=== PATIENT | female | born 1995 | race Caucasian/White ===

== ENCOUNTER 2017-01-05 16:38 | Emergency (ER) | payer BC ==
[2017-01-05 17:10] VITALS: BP 131/100
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
--- NOTE | 2017-01-07 08:19 | CR ---
DATE OF SERVICE: 01/05/17 CLINICAL DATA: injury to right hand RIGHT HAND: No acute fracture or dislocation. No lytic or blastic bone lesions. [id number] [facility]
== END 2017-01-05 17:45 | disposition home or self-care (01) ==
LOC: LB.ED 16:38
DX: S20.411A Abrasion of right back wall of thorax, initial encounter (principal); M79.641 Pain in right hand; T74.11XA Adult physical abuse, confirmed, initial encounter; Y07.01 Husband, perpetrator of maltreatment and neglect; Y04.0XXA Assault by unarmed brawl or fight, initial encounter; Z98.890 Other specified postprocedural states; Z79.899 Other long term (current) drug therapy; Z88.5 Allergy status to narcotic agent; Z88.6 Allergy status to analgesic agent
CPT/HCPCS: 29125; 73130-RT; 81025; 99283

== ENCOUNTER 2017-02-16 12:03 | Emergency (ER) | payer SELFPAY ==
[2017-02-16 12:23] VITALS: BP 164/118
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
[2017-02-16] MEDS ORDERED: Diphtheria,Pertussis(Acell),Tetanus Vaccine 0.5 ML SDV inactive IM ONE (13:03)
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
== END 2017-02-16 13:04 | disposition home or self-care (01) ==
LOC: LB.ED 12:03
DX: S90.122A Contusion of left lesser toe(s) without damage to nail, initial encounter (principal); M54.9 Dorsalgia, unspecified; M06.9 Rheumatoid arthritis, unspecified; Z79.899 Other long term (current) drug therapy; Z88.5 Allergy status to narcotic agent; Z23 Encounter for immunization; Z88.8 Allergy status to other drugs, medicaments and biological substances; X58.XXXA Exposure to other specified factors, initial encounter
CPT/HCPCS: 71100-RT; 72070; 73660-T1; 90471; 99283-25